=== PATIENT | female | born 1980 | race Caucasian/White ===

== ENCOUNTER → 2016-08-14 | Outpatient (CLI) | payer OTHER ==
[~2016-08-14] MED LIST: PRENTAB26 PO
[2016-08-14 11:39] LABS: GTGD 50 Grams
== END | disposition home or self-care (01) ==
LOC: C.LAB1850 10:01
PROVIDERS: ATTEND Obstetrics & Gynecology
DX: O09.529 Supervision of elderly multigravida, unspecified trimester (principal); Z3A.00 Weeks of gestation of pregnancy not specified

== ENCOUNTER → 2016-10-30 | Outpatient (CLI) | payer OTHER ==
[2016-10-30 11:29] LABS: URINE APPEARANCE CLEAR (CLEAR); URINE BILIRUBIN NEG (NEG); URINE COLOR YELLOW; URINE NITRITE NEG (NEG); URINE SPECIFIC GRAVITY 1.006 (1.000-1.030); UROBILINOGEN NEG (NEG)
[2016-10-30 11:40] LABS: MANUAL MICROSCOPIC REQUIRED? NO; REVIEW REQ? NO
[2016-10-30 12:06] LABS: HEMATOCRIT 33.7 % (37-47)
[2016-10-30 14:11] LABS: GTGD 50 Grams
== END | disposition home or self-care (01) ==
LOC: C.LAB1850 10:33
PROVIDERS: ATTEND Obstetrics & Gynecology
DX: O09.522 Supervision of elderly multigravida, second trimester (principal); Z36 Encounter for antenatal screening of mother; Z3A.00 Weeks of gestation of pregnancy not specified

== ENCOUNTER → 2016-12-25 | Outpatient (CLI) | payer OTHER | END | disposition home or self-care (01) | LOC: C.LABSPEC 17:32 | PROVIDERS: ATTEND Obstetrics & Gynecology | DX: O09.522 Supervision of elderly multigravida, second trimester (principal) ==

== ENCOUNTER → 2017-01-01 | Outpatient (CLI) | payer OTHER | END | disposition home or self-care (01) | LOC: C.LABSPEC 16:04 | PROVIDERS: ATTEND Obstetrics & Gynecology | DX: O09.522 Supervision of elderly multigravida, second trimester (principal); Z3A.00 Weeks of gestation of pregnancy not specified ==

== ENCOUNTER 2017-01-21 03:00 | Inpatient (IN) | payer OTHER ==
[~2017-01-21] VITALS: Ht 167.6 cm; Wt 87.1 kg
[2017-01-29 08:30] VITALS: Ht 167.6 cm; Wt 87.1 kg
[2017-01-29 08:57] LABS: HEMATOCRIT 35.1 % (37-47); MEAN CELL VOLUME 99.4 fL (80-100); MEAN CORPUSCULAR HEMOGLOBIN 33.7 pg (25-34); MEAN CORPUSCULAR HGB CONC 33.9 g/dl (32-36); MEAN PLATELET VOLUME 9.4 fL (7.4-10.4); PLATELET COUNT 204 K/uL (130-400); RED BLOOD COUNT 3.53 M/uL (4.2-5.4); WHITE BLOOD COUNT 10.82 K/uL (4.8-10.8)
[2017-01-29] MEDS ORDERED: LACTATED RINGER'S 1000ML 500 ML IV PRN ×2 (09:05→15:20)
[2017-01-29] MEDS ORDERED: OXYTOCIN 30 UNITS/500ML NSS IV PRN ×2 (09:15→16:30)
--- NOTE | 2017-01-29 09:35 | Medical Student: [facility] ---
Med Student History & Physical Date of Service Jan 29, 2017. Chief Complaint Induction of Labor History of Present Illness Source: patient Rebecca Fermin is a 36-year-old at 41 weeks-1/7 days with an BRYAN of who presents to labor and delivery for induction of labor. She states that she is doing well but is also anxious. She denies any vaginal bleeding. She is feeling contractions. She has minimal mucous discharge, and movements are present. Patient plans to have private cord blood banking completed. This has been followed by [facility], and her course has been uncomplicated this far. On screening, RPR, Gonorrhea, Chlamydia, HIV, pap smear, urine culture, and Hep B were all negative. Panorama negative. She is Rubella immune and GBS negative. Anatomic ultrasound at 20 weeks was found to be normal. Tdap given. Blood type is O+. Hb on 06/12/16 was 12.4 g/dl. 1 hour glucose challenge revealed glucose level of 86 mg/dl. Blood pressure ranges from 100-136/62-84. OB History 11/16/2009 - of 7lb 4oz female infant born at 40 weeks 0/7 days gestation without any complications. 11/17/2011 - of 7lb female infant born at 40 weeks 3/7 days gestation without any complications. No hx of abortions. 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 Denies history of STIs or abnormal pap smears. Reports history of yeast infections. Menarche at age 14 with periods lasting 5 days every 24 days. Flow is "normal." Denies intramenstrual bleeding or problems with periods. Past Medical History Denies history of any medical problems. Past Surgical History Breast reduction in 1998. [place] teeth removal. 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) Allergies Coded Allergies: No Known Allergies (Verified , 01/29/17) Home Medications Multivit/Min/Iron/Fol Ac/Pren ( Vitamin), 1 TAB PO DAILY Review of Systems Constitutional: + problem reported (feeling "woozy" after IV placement), No fever, No chills Respiratory: No shortness of breath Cardiovascular: No chest pain, No palpitations Abdomen: + diarrhea (last BM yesterday and reports diarrhea), No pain, No nausea, No vomiting Physical Exam General Appearance: WD/WN, no apparent distress Respiratory/Chest: lungs clear, normal breath sounds Cardiovascular: regular rate, rhythm, no gallop, no murmur Abdomen / GI: normal bowel sounds, non tender, + pertinent finding (gravid uterus) Fundal Height: 3-4 fingerbreadths below xiphoid process. Estimated weight of 7-8 lbs Extremities: normal inspection, no calf tenderness, + pedal edema (trace) Cervical exam: 3 cm dilated, 80% effaced, -1 station Monitoring External Monitor: Baseline 120. Moderate variability. Accelerations present. Decelerations absent. Tocodynamometer: Lemuel every 6 minutes. Laboratory Results Test 01/29/17 08:32 Assessment and Plan Rebecca Fermin is a 36-year-old at 41 weeks-07/15 days who presents for induction of labor. Patient is comfortable and plans to receive epidural for pain management. Category I heart tracing. - Continue routine maternal and monitoring. - Begin pitocin. - Allow clear liquids. - Consider AROM as fetus descends further into pelvis. - Anticipate normal spontaneous vaginal delivery.
[2017-01-29] MEDS ORDERED: FENTANYL 2MCG/ML ROPIV 1.25MG/ML 100ML BAG EPI ONE (13:32)
[2017-01-29] MEDS ORDERED: EpHEDrine SULFATE INJ 50 MG/ML AMP ONE (13:32)
[2017-01-29] MEDS ORDERED: BUPIVACAINE 0.25% 30 ML VIAL ONE (13:32)
[2017-01-29] MEDS ORDERED: FENTANYL CITRATE INJ 50 MCG/1 ML 2 ML VIAL ONE (13:33)
[2017-01-29] MEDS: LACTATED RINGER'S 1000ML 1,000 ML IV SCH (14:26)
[2017-01-29] MEDS ORDERED: NALOXONE HCL INJ 1 MG in SODIUM CHLORIDE 0.9% 1000ML 1,000 ML IV PRN (15:20)
[2017-01-29] MEDS ORDERED: DiphenhydrAMINE HCL 50 MG/ML VIAL IV PRN (15:30)
[2017-01-29] MEDS ORDERED: FENTANYL 2MCG/ML ROPIV 1.25MG/ML 100ML BAG EPI PRN (15:30)
[2017-01-29] MEDS ORDERED: NALBUPHINE HCL INJ 10 MG/ML AMP IV PRN (15:30)
[2017-01-29] MEDS ORDERED: ONDANSETRON INJ 2 MG/ML 2 ML VIAL IV PRN (15:30)
[2017-01-29] MEDS ORDERED: EpHEDrine SULFATE INJ 50 MG/ML AMP IV PRN (15:30)
[2017-01-29] MEDS ORDERED: NALOXONE HCL INJ 0.4 MG/1 ML VIAL/CARP IV PRN (15:30)
[2017-01-29] MEDS ORDERED: ERYTHROMYCIN OP OINT 1 GM PKT ONE (15:56)
--- NOTE | 2017-01-29 16:04 | Medical Student: [facility] ---
Medical Student Delivery Note Rebecca Fermin is a 36-year-old at 41 weeks-1/7 days with an BRYAN of who presented to labor and delivery for induction of labor. Labor was augmented with IV Pitocin and AROM. She became completely dilated, effaced, and +1 station was was ready to push. A viable male was delivered in the left occiput transverse position at 1542 and was placed on the maternal abdomen for drying and attention. Amniotic fluid was clear. The cord was doubly clamped and then transected by the father of the infant. Cord blood for private banking and cord segment were obtained. A second degree perineal laceration was apparent and was repaired with 3-0 Vicryl in standard fashion. An intact placenta with a 3 vessel cord was then delivered with uterine massage and vijay downward traction. Hemostasis was achieved with continued uterine massage and Pitocin. No further intervention was necessary. EBL was 350 cc. scores were 9 and 9. Weight pending. Mother and infant are currently doing well and are recovering together.
[2017-01-29] MEDS ORDERED: LACTATED RINGER'S 1000ML 1,000 ML IV SCH (16:17)
[2017-01-29] MEDS ORDERED: OXYCODONE/ACETAMINOPHEN 5-325 TAB PO PRN (16:30)
[2017-01-29] MEDS ORDERED: ACETAMINOPHEN 325 MG TAB PO PRN (16:30)
[2017-01-29] MEDS ORDERED: BENZOCAINE 20% AER SPR 82.5 GM CAN EXT PRN (16:30)
[2017-01-29] MEDS ORDERED: LANOLIN OINT EXT PRN ×2 (16:30)
[2017-01-29] MEDS ORDERED: HYDROCORTISONE ACETATE 25 MG SUPP PR PRN (16:30)
[2017-01-29] MEDS ORDERED: DIPHTHERIA/TETANUS/PERTUSSIS 0.5 ML SYR/VIAL IM. ONE (16:30)
[2017-01-29] MEDS ORDERED: SUPERCREAM 0.870 % 15GM JAR EXT PRN (16:30)
--- NOTE | 2017-01-29 16:51 | Anesthesia Procedure Note ---
Anesthesia Epidural Removal Nt Date & Time Jan 29, 2017 at 16:50 Notes Mental Status: alert / awake / arousable, participated in evaluation Nausea / Vomiting: adequately controlled Pain: adequately controlled Airway Patency, RR, SpO2: stable & adequate BP & HR: stable & adequate Hydration State: stable & adequate Neuraxial Anesthesia: was administered, sensory block is resolving Anesthetic Complications: no major complications apparent, pt satisfied with anesthetic care Epidural: removed without complications, with tip intact
[2017-01-29 18:35] VITALS: BP 111/71; PULSE 55; TEMP 36.6
[2017-01-29] MEDS: DOCUSATE SODIUM 100 MG CAP PO SCH (19:45)
[2017-01-29 23:20] VITALS: BP 131/77; PULSE 75; TEMP 36.7
[2017-01-29] MEDS: IBUPROFEN 600 MG TAB PO PRN (23:26)
--- NOTE | 2017-01-29 23:28 | DELIVERY SUMMARY ---
DATE OF OPERATION: 01/29/2017 PREOPERATIVE DIAGNOSES: 1. Mazariegos intrauterine at 41+ weeks. 2. Induction of labor for postdates. 3. Group B strep negative. POSTOPERATIVE DIAGNOSES: Same. PROCEDURE: Spontaneous vaginal delivery and repair of second degree laceration. SURGEON: Dr. Dunn. UX VISUAL DESIGNER: None. ESTIMATED BLOOD LOSS: 350. COMPLICATIONS: None. DISPOSITION: Stable to labor and delivery. DESCRIPTION OF PROCEDURE: She is a 3, para 2 who presented for induction of labor due to postdates. Her induction proceeded with Pitocin and artificial rupture of membranes as well as an epidural for pain management. I was called to the room for delivery when the patient had been found to be completely dilated. The patient was coached on pushing and very rapidly brought the head to . The head of the infant delivered in the occiput anterior position, followed by the right anterior shoulder and the left posterior shoulder without any difficulty. The cord was noted to be just in front of and slightly on top of the right shoulder at delivery. The remainder of the delivered without any difficulty. The was placed on the maternal abdomen but the cord was doubly clamped and cut by the father of the baby. The placenta then delivered spontaneously and was intact with a 3-vessel cord. With the completion of placenta delivery, the cervix, vagina and perineum were examined and a second degree laceration was identified which was repaired in the usual manner with a Vicryl suture. At the completion of repair, the fundus was firm, lochia was minimal and mother and are both in stable condition, having tolerated delivery well. I attest to the content of the Intraoperative Record and any orders documented therein. Any exception s are noted below.
[2017-01-30 04:20] VITALS: BP 126/78; PULSE 63; TEMP 36.7
[2017-01-30 06:34] LABS: HEMATOCRIT 32.1 % (37-47)
--- NOTE | 2017-01-30 07:09 | OB/GYN Progress Note ---
AEROPHYSICIST Progress Note Date of Service Jan 30, 2017. Subjective conversation w/ patient, physical exam, chart review, lab review Ambulation: ambulating normally Voiding: no voiding problems Passing Gas: Yes Diet Tolerance: Regular Diet Lochia: Small Feeding Type: Breast Feeding Pain: Minimal low abd cramping Review of Systems Constitutional: No fever, No chills Respiratory: No cough, No shortness of breath Cardiac: No chest pain Abdomen: No nausea, No vomiting, No diarrhea Female : No dysuria Objective Vital Signs Date Time Temp Pulse Resp B/P (MAP) Pulse Ox O2 Delivery O2 Flow Rate FiO2 01/30/17 04:20 36.7 63 18 126/78 (94) Room Air 01/29/17 23:20 36.7 75 20 131/77 (95) Room Air 01/29/17 23:20 Room Air 01/29/17 18:35 36.6 55 16 111/71 (84) Room Air 01/29/17 18:35 Room Air Physical Exam General Appearance: WELL-APPEARING, WD/WN, NO APPARENT DISTRESS Respiratory/Chest: lungs clear, normal breath sounds Cardiovascular: regular rate, rhythm Abdomen: normal bowel sounds, non tender, soft Fundus: Firm, Non-Tender, Relation to Umbilicus (approx two down) Extremities: normal range of motion, non-tender, no calf tenderness, + pedal edema (very minimal (B) pedal edema, symmetrical) Laboratory Results Last 24 Hours Test 01/29/17 08:42 01/30/17 06:14 White Blood Count 10.82 K/uL Red Blood Count 3.53 M/uL Hemoglobin 11.9 g/dL 11.0 g/dL Hematocrit 35.1 % 32.1 % Mean Corpuscular Volume 99.4 fL Mean Corpuscular Hemoglobin 33.7 pg Mean Corpuscular Hemoglobin Concent 33.9 g/dl RDW Standard Deviation 48.0 fL RDW Coefficient of Variation 13.3 % Platelet Count 204 K/uL Mean Platelet Volume 9.4 fL Assessment and Plan Post- Day Number: 1 Continue Routine Care: 36yo s/p , now PPD #1. - Blood type O positive. GBS negative. Rubella immune. - Vital signs reviewed and stable. - Pain controlled with motrin. - No leg swelling or tenderness on calf palpation. Very minimal feet swelling. Encourage ambulation. - Encourage breast feeding. - Hemoglobin pre-delivery 11.9, post-delivery 11.0. Bleeding has improved. Continue to monitor clinically. - Continue routine post-vaginal delivery care. - Pt agreed with above plan, all current questions answered. Betito Alvarenga MD, PGY1 Drywall Metal Stud Worker Physician Supervision Note: I interviewed and examined the patient. Discussed with Dr. Alvarenga and agree with findings and plan as documented in the note. Any exceptions or clarifications are listed here: [None] Documented By: Marisol Dunn Resident Tracking Resident Involvement: Resident Care Provided Care Provided: OB Delivery (morning rounds)
[2017-01-30] MEDS: DOCUSATE SODIUM 100 MG CAP PO SCH ×2 (08:07→19:52)
[2017-01-30] MEDS: PRENATAL VITAMIN TAB PO SCH (08:08)
[2017-01-30] MEDS: FERROUS SULFATE 325 MG TAB PO SCH (08:08)
[2017-01-30 08:45] VITALS: BP 129/77; PULSE 76; TEMP 36.7
[2017-01-30] MEDS: IBUPROFEN 600 MG TAB PO PRN ×2 (08:54→14:25)
[2017-01-30 12:24] VITALS: BP 123/85; PULSE 59; TEMP 36.3
[2017-01-30 16:45] VITALS: BP 115/79; PULSE 56; TEMP 37
[2017-01-30 23:30] VITALS: BP 122/79; PULSE 64; TEMP 36.4
--- NOTE | 2017-01-31 06:44 | OB/GYN Progress Note ---
DISTRIBUTION ESTIMATOR Progress Note Date of Service Jan 31, 2017. Subjective conversation w/ patient, physical exam, chart review, lab review Ambulation: ambulating normally Voiding: no voiding problems Passing Gas: Yes Diet Tolerance: Regular Diet Lochia: Small Feeding Type: Breast Feeding Pain: Notes some low abd cramping with breast feeding Review of Systems Constitutional: No fever, No chills Respiratory: No cough, No shortness of breath Cardiac: No chest pain Abdomen: No nausea, No vomiting, No diarrhea Female : No dysuria Objective Vital Signs Date Time Temp Pulse Resp B/P (MAP) Pulse Ox O2 Delivery O2 Flow Rate FiO2 01/30/17 23:30 36.4 64 18 122/79 (93) Room Air 01/30/17 23:30 Room Air 01/30/17 16:45 Room Air 01/30/17 16:45 37.0 56 20 115/79 (91) Room Air 01/30/17 12:24 36.3 59 16 123/85 (98) 01/30/17 08:45 36.7 76 20 129/77 (94) Physical Exam General Appearance: WELL-APPEARING, WD/WN, NO APPARENT DISTRESS Respiratory/Chest: lungs clear, normal breath sounds Cardiovascular: regular rate, rhythm (borderline regular bradycardia) Abdomen: normal bowel sounds, non tender, soft Fundus: Firm, Non-Tender, Relation to Umbilicus Extremities: normal range of motion, non-tender, no pedal edema, no calf tenderness Assessment and Plan Post- Day Number: 2 Continue Routine Care: 36yo s/p , now PPD #2. - Blood type O positive. GBS negative. Rubella immune. - Vital signs reviewed and stable. - Pain controlled with motrin. - No leg swelling or tenderness on calf palpation. Encourage ambulation. - Encourage breast feeding. - Hemoglobin pre-delivery 11.9, post-delivery 11.0. Continue to monitor clinically. - Continue routine post-vaginal delivery care. - Pt agreed with above plan, all current questions answered. Betito Alvarenga MD, PGY1 Road Inspector Physician Supervision Note: I interviewed and examined the patient. Discussed with Dr. Alvarenga and agree with findings and plan as documented in the note. Any exceptions or clarifications are listed here: [None] Documented By: Nigel Rogers Resident Tracking Resident Involvement: Resident Care Provided Care Provided: OB Delivery (morning rounds)
--- NOTE | 2017-01-31 07:01 | Discharge Instructions ---
Discharge Instructions Date of Service Jan 31, 2017. Admission Reason for Admission: Induction Discharge Discharge Diagnosis / Problem: Recovery from vaginal delivery Discharge Goals Goal(s): Routine recovery after delivery Medications Continue Dispensed Medications: supercream, dermaplast, tucks, lansinoh Activity Recommendations Activity Limitations: per Instructions/Follow-up section . Instructions / Follow-Up Instructions / Follow-Up ACTIVITY RECOMMENDATIONS: * Gradual return to full activity over the next 2-3 weeks. * No lifting - nothing heavier than baby over the next 2-3 weeks. * Do not engage in vigorous exercise, sexual activity or sports until cleared by your physician. * Do not drive or operate any motorized equipment until cleared by your physician. * You may shower/bathe daily. MEDICATIONS: For discomfort or pain, you may use Acetaminophen (Tylenol), Ibuprofen (Advil), or Naproxen (Aleve) following the package directions. For constipation you may use Colace following the package directions. BREAST CARE: If you are not breast feeding: * Wear a supportive bra 24 hours a day for one to two weeks. * Avoid stimulating your breasts and nipples as much as possible during the first few weeks after delivery. * When taking a shower, have the warm water hit your back, not breasts. * When your breasts feel full, apply ice packs. Usually three to four times a day helps ease the discomfort. * Take a mild pain medication (Tylenol / Motrin) when you are uncomfortable. If breast feeding: * Use breast milk to lubricate nipples. Lansinoh cream may be used for sore nipples. You do not need to remove cream prior to breast feeding. If using a different brand of cream, check the label for directions regarding removal of cream prior to nursing. * Wear a supportive bra. * If having problems with breasts or breast feeding, call a natural remedy consultant or your health care provider. EPISIOTOMY CARE: After delivery, if you have an episiotomy (stitches), the following steps will ease discomfort and aid healing. * For the first 24 hours after delivery, place ice packs next to your episiotomy to help reduce swelling. * After the first 24 hour-period, sitz baths, either portable or in the tub, are suggested. A shower with a shower arm sprayed over the episiotomy may be comforting. * Barbara care should be done after each voiding and bowel movement. Squirt warm water from a plastic bottle over the perineum (region of the body between the anus and urinary opening) and pat dry. * Use Dermoplast to ease discomfort. Shake container. Halls directly over the episiotomy. Place a Tucks on a clean sanitary pad next to your episiotomy. SPECIAL CARE INSTRUCTIONS: When you are discharged from the hospital, it is important for you to follow the instructions listed below: * During the first week at home, you should be able to care for yourself and your baby. In addition, the usual light household activities are encouraged. * Limit your activities to the way you feel. Do not try to clean the house or move furniture. Be sensible. * If you actively engage in sports and have done so up until the time of your delivery, you may resume these activities as soon as you feel able. This may take up to one month or even longer. Use good judgment. * Continue to take your vitamins for at least six weeks after the of your baby. * Your diet need not be limited unless you were on a special diet before your delivery. Breast-feeding mothers need around 2500 calories per day and at least 64-80 ounces of fluid per day (8 to 10 glasses). * You should eat foods from the four major food groups. Crash diets or fad diets are to be avoided. Eating lean meats, fresh fruits and vegetables, low-fat dairy products, high fiber foods and a regular exercise program, will help you get back to your pre- weight without putting your health at risk. * Constipation is sometimes a problem after delivery. Take a mild laxative as needed. If breast feeding, Milk of Magnesia is acceptable to use. You may use a suppository or Fleets enema if no episiotomy. * A daily shower or tub bath is suggested. Be sure to thoroughly and gently dry the perineum. * A bloody vaginal discharge will usually continue until around four weeks post . A small amount of bleeding may continue for as long as six weeks. Vaginal discharge changes from the bright red bleeding after delivery to pink then brownish and finally yellowish-pink before becoming white and disappearing. * Bleeding may increase with activity. Your first period may come in 4-8 weeks. If you are breast feeding, your period may be delayed even longer. * [place] (sex) can begin whenever both you and your partner feel comfortable and do not have any form of genital infection. It is recommended that you wait at least six weeks for internal and external healing to occur. If you have questions, please talk to your health care practitioner. A condom should be used to prevent infection and . * Foreplay, gentle intercourse and lubrication is very important the first several times to prevent pain. A water-based lubricant such as K-Y jelly or Astroglide may be used. * If you have RH negative blood and your baby is RH positive, you will receive RHOGAM by injection prior to discharge. The nurse will give you a card to keep with you that has the date and place that you received RHOGAM after delivery. * During your care, you had a Rubella screen done to check for the presence of rubella antibodies in your blood. If your test was negative, you will receive a Rubella vaccine prior to discharge. This vaccine may cause a fever, soreness at the injection site and flu-like symptoms. If these symptoms persist, notify your health care practitioner. is not advised for one month after a Rubella vaccine. * Verbalizes understanding of car seat law as reviewed with patient nursing. * Car Seat hand-out given and reviewed with patient by nursing. * Shaken baby information reviewed with patient by nursing. Call you doctor if: * Heavy bleeding (saturating several pads an hour) or passing clots the size of your fist. * A fever >101 degrees F (38.3 degrees C) on two occasions four hours apart and /or chills. * Unusual pain in the pelvic or vaginal areas. * "Baby Blues" lasting longer than two weeks. If you have any questions or concerns, call your health care practitioner at . FOLLOW UP VISIT: * Please call the office at to schedule a 6 week examination. It is important you keep this appointment. It is important for you to make arrangements for either yearly or twice yearly check-ups thereafter. Current Hospital Diet Patient's current hospital diet: Regular OB Diet Discharge Diet Recommended Diet: Regular OB Diet Pending Studies Studies pending at discharge: no Medical Emergencies . Who to Call and When: Medical Emergencies: If at any time you feel your situation is an emergency, please call 911 immediately. . Non-Emergent Contact Non-Emergency issues call your: [facility] . . "Provider Documentation" section prepared by Betito Alvarenga. . VTE Core Measure Inpt VTE Proph given/why not?: Treatment not indicated
[2017-01-31 07:20] VITALS: BP 114/80; PULSE 61; TEMP 36.7; O2SAT 100
[2017-01-31] MEDS: DOCUSATE SODIUM 100 MG CAP PO SCH (07:56)
[2017-01-31] MEDS: FERROUS SULFATE 325 MG TAB PO SCH (07:56)
[2017-01-31] MEDS: PRENATAL VITAMIN TAB PO SCH (07:56)
[2017-01-31 10:45] VITALS: BP_DIAS 80; PULSE 61; TEMP 36.7
== END 2017-01-31 10:45 | disposition home or self-care (01) | DRG 775 ==
LOC: C.LD 01-29 07:41 → C.OBG 01-29 18:35
PROVIDERS: ADMIT Obstetrics & Gynecology; ATTEND Obstetrics & Gynecology
PROC: 10E0XZZ Delivery of Products of Conception, External Approach (ICD-10-PCS; principal; 2017-01-29)
PROC: 0KQM0ZZ Repair Perineum Muscle, Open Approach (ICD-10-PCS; principal; 2017-01-29)
PROC: 10907ZC Drainage of Amniotic Fluid, Therapeutic from Products of Conception, Via Natural or Artificial Opening (ICD-10-PCS; principal; 2017-01-29)
PROC: 3E033VJ Introduction of Other Hormone into Peripheral Vein, Percutaneous Approach (ICD-10-PCS; principal; 2017-01-29)
DX: O48.0 Post-term pregnancy (principal); Z37.0 Single live birth; O26.893 Other specified pregnancy related conditions, third trimester; O70.1 Second degree perineal laceration during delivery; O76 Abnormality in fetal heart rate and rhythm complicating labor and delivery; O69.89X0 Labor and delivery complicated by other cord complications, not applicable or unspecified; Z3A.41 41 weeks gestation of pregnancy